=== PATIENT | male | born 1985 | race African-American/Black ===

== ENCOUNTER 2018-02-10 11:48 | Emergency (ER) | payer MEDICAID ==
[~2018-02-10] VITALS: Ht 170.2 cm; Wt 77.3 kg
[~2018-02-10 11:48] MED LIST: DSS100 PO; OMEP20 PO; RISP1 PO
[2018-02-10] MEDS ORDERED: ESCI10TA PO (11:54)
[2018-02-10 13:23] VITALS: BP 141/81
== END 2018-02-10 13:40 | disposition home or self-care (01) ==
LOC: EMS 11:49
DX: F32.9 Major depressive disorder, single episode, unspecified (principal); F17.210 Nicotine dependence, cigarettes, uncomplicated; Z76.0 Encounter for issue of repeat prescription; Z79.899 Other long term (current) drug therapy
CPT/HCPCS: 99283